=== PATIENT | female | born 1980 ===

== ENCOUNTER → 2021-03-31 11:29 | Outpatient (CLI) | payer OTHER, SELFPAY ==
[2021-03-31 12:00] LABS: COVID19 -Nasal RAPID Negative (Negative)
== END ==
PROVIDERS: Visit Provider Nurse Practitioner
DX: R05 Cough (principal); J02.9 Acute pharyngitis, unspecified; R09.81 Nasal congestion; Z20.822 Contact with and (suspected) exposure to COVID-19
CPT/HCPCS: 87635

== ENCOUNTER 2023-05-04 15:26 | Emergency (ER) | payer OTHER, SELFPAY ==
[2023-05-04] VITALS (12 sets, daily range): BP systolic 101–117; BP diastolic 68–74; PULSE 93–120; RESP 15–25; TEMP 36.6; O2SAT 94–99; BMI 28.0
--- NOTE | 2023-05-04 15:35 | DI.RAD.S_ITS ---
PROCEDURE: XR CHEST 1V INDICATIONS: chest pain TECHNIQUE: One view of the chest was acquired. COMPARISON: None. FINDINGS: Surgical changes and devices: None. Lungs and pleura: Lungs are clear. No pleural effusions or pneumothorax. Mediastinum: Mediastinal contours appear normal. Heart size is normal. Bones and chest wall: No suspicious bony lesions. Overlying soft tissues appear unremarkable. IMPRESSION: Normal for age, source of current chest pain symptoms is not seen. Dictated by: Jc Benz M.D. on 05/04/2023 at 16:18 Approved by: Jc Benz M.D. on 05/04/2023 at 16:18
[2023-05-04 16:33] LABS: COVID19 -Nasal RAPID Negative (Negative)
[2023-05-04 16:33] LABS: Alanine Aminotransferase 26 IU/L (<35); Albumin 4.3 g/dL (3.5-5.0); Albumin Globulin Ratio 1.4 (1.0-2.8); Alkaline Phosphatase 63 U/L (38-126); Aspartate Aminotransferase 29 IU/L (14-36); BUN Creatinine Ratio 14.5 (6-22); Bilirubin Total 0.5 mg/dL (0.2-1.3); Blood Urea Nitrogen 9 mg/dL (7-17); Calcium 9.3 mg/dL (8.4-10.2); Carbon Dioxide 28 mmol/L (22-32); Chloride 104 mmol/L (98-107); Creatine Kinase 105 U/L (30-135); Estimated Glomerular Filt Rate > 60 mL/min (>60); Globulin 3.1 g/dL (1.7-4.1); Glucose 100 mg/dL (70-100); Lipase 119 U/L (23-300); Magnesium 2.2 mg/dL (1.6-2.3); Sodium 138 mmol/L (137-145); Total Protein 7.4 g/dL (6.3-8.2)
[2023-05-04 16:35] LABS: PTT Partial Thromboplastin Tim 19 SECONDS (26-36)
[2023-05-04 16:37] LABS: INR 0.9 (0.9-1.3); Prothrombin Time 10.7 SECONDS (10.1-12.7)
[2023-05-04 16:40] LABS: Add Manual Diff / Slide Review NO; Basophils Percent Auto 0.3 % (0-2); Eosinophils Percent Auto 1.5 % (2-4); HEMOLYSIS 63 (0-50); Hematocrit 42.6 % (36-46); Hemoglobin 14.4 g/dL (12.0-16.0); Lymphocytes Percent Auto 31.6 % (25-40); Mean Corpuscular HGB Conc 33.9 % (30-36); Mean Corpuscular Hemoglobin 30.4 PG (26-34); Mean Corpuscular Volume 89.6 fL (80-100); Monocytes Percent Auto 7.8 % (3-14); Neutrophils Absolute Auto 5100 /uL (1500-7000); Neutrophils Percent Auto 58.8 % (50-75); Red Blood Cell Count 4.76 X10^6/uL (4.0-5.2); Red Cell Distribution Width 13.1 % (11.6-14.8); White Blood Cell Count 8.7 X10^3/uL (4.5-11.0)
[2023-05-04 16:41] LABS: Basophils Absolute Auto 0 /uL (0-100); Eosinophils Absolute Auto 100 /uL (0-450); Lymphocytes Absolute Auto 2700 /uL (1100-4500); Monocytes Absolute Auto 700 /uL (0-900)
[2023-05-04 16:44] LABS: Troponin I < 0.012 ng/mL (0.01-0.034)
[2023-05-04 16:48] LABS: Platelet Count 236 X10^3/uL (150-400)
[2023-05-04 16:49] LABS: D Dimer 376 ng/ml (<500)
[2023-05-04 17:04] LABS: TSH w/ Reflex to FT4 0.73 uIU/mL (0.47-4.68)
[2023-05-04] MEDS: SODIUM CHLORIDE 0.9% 1,000 ML 1000 ML IV (18:06)
--- NOTE | 2023-05-04 18:19 | ED_ITS ---
HPI - Arrhythmia/Palpitations General Chief Complaint: Arrhythmia/Palpitations Stated Complaint: Palpitations Time Seen by Provider: 05/04/23 16:02 Mode of arrival: Family Vehicle History of Present Illness HPI narrative: Patient is a 42-year-old female who presents today with heart palpitations. She is no past medical history. She reports that she was feeling in her normal state of health earlier today. She was driving home when she felt her heart rate going up and having heart palpitations. She thought she might pass out so she pulled off to the side of the road. She felt it subside she never passed out then quickly heart rate spiked back down and spiked again. She never passed out no dizziness or lightheadedness. She is not had any fever or chills. No abdominal pain no vomiting. She reports that she previously had a heart workup she had a monitor and an echo she reports she is a valve problem. She has not had this happen in a long time. She is not currently taking any medications. Related Data Home Medications Medication Instructions Recorded Confirmed No Known Home Medications 03/31/21 03/31/21 Allergies Allergy/AdvReac Type Severity Reaction Status Date / Time No Known Drug Allergies Allergy Unverified 05/04/23 15:34 Review of Systems Review of Systems ROS Unobtainable: All systems reviewed & are unremarkable except as noted in HPI and below Patient History Social History Smoking Status: Never smoker Smoking Status: Never smoker Exam Initial Vital Signs Initial Vital Signs: Vital Signs Temperature 98 F 05/04/23 15:32 Pulse Rate 120 H 05/04/23 15:32 Respiratory Rate 16 05/04/23 15:32 Blood Pressure 117/70 05/04/23 15:32 Pulse Oximetry 99 05/04/23 15:32 Oxygen Delivery Method Room Air 05/04/23 15:32 GENERAL: Alert pleasant well-appearing 42-year-old female and in no acute distress. HEENT: Head atraumatic,EOMI, pupils reactive, face symmetric, moist mucous membranes CARDIOVASCULAR: Regular rate and rhythm without murmurs, rubs or gallops. RESPIRATORY: Breath sounds equal bilaterally, no wheezes rales or rhonchi. ABDOMEN: Soft, nontender. Normoactive bowel sounds all 4 quadrants. No guarding or rebound. EXTREMITIES: Normal range of motion, no clubbing or edema. Neurovascularly intact NEUROLOGICAL: Alert and oriented x4. SKIN: Warm, dry, no laceration, no petechiae, no rashes or lesions. Course Orders Ordered: Discontinued Medications Acetaminophen (Acetaminophen 325 Mg Tablet) 975 mg PO NOW ONE Stop: 05/04/23 18:32 Last Admin: 05/04/23 18:43 Dose: 975 mg Documented By: RENNY Aspirin (Aspirin 81 Mg Chew Tab) 324 mg PO NOW ONE Stop: 05/04/23 15:36 Last Admin: 05/04/23 17:03 Dose: Not Given Documented By: EDDIE Sodium Chloride (Normal Saline 0.9%) 1,000 mls @ 1,000 mls/hr IV BOLUS ONE Stop: 05/04/23 18:52 Last Infusion: 05/04/23 19:40 Dose: Infused Documented By: Admin: 05/04/23 18:06 Dose: 1,000 mls/hr Documented By: RENNY Vital Signs Vital signs: Vital Signs - 8 hr 05/04/23 19:00 05/04/23 19:00 05/04/23 19:30 Pulse Rate 93 H Respiratory Rate 20 Blood Pressure 113/71 109/69 Pulse Oximetry 98 Oxygen Delivery Method Room Air 05/04/23 19:30 Pulse Rate 98 H Respiratory Rate 25 H Blood Pressure Pulse Oximetry 99 Oxygen Delivery Method MDM - Arrhythmia/Palpitations Lab Data 05/04/23 16:00 05/04/23 16:00 Labs: Lab Results 05/04/23 05/04/23 Range/Units 16:00 16:10 WBC 8.7 (4.5-11.0) X10^3/uL RBC 4.76 (4.0-5.2) X10^6/uL Hgb 14.4 (12.0-16.0) g/dL Hct 42.6 (36-46) % MCV 89.6 (80-100) fL MCH 30.4 (26-34) PG MCHC 33.9 (30-36) % RDW 13.1 (11.6-14.8) % Plt Count 236 (150-400) X10^3/uL Neut % (Auto) 58.8 (50-75) % Lymph % (Auto) 31.6 (25-40) % [place] % (Auto) 7.8 (3-14) % Eos % (Auto) 1.5 L (2-4) % Baso % (Auto) 0.3 (0-2) % Neut # (Auto) 5100 (4178-7824) /uL Lymph # (Auto) 2700 (1764-3758) /uL [place] # (Auto) 700 (0-900) /uL Eos # (Auto) 100 (0-450) /uL Baso # (Auto) 0 (0-100) /uL PT 10.7 (10.1-12.7) SECONDS INR 0.9 (0.9-1.3) APTT 19 L (26-36) SECONDS D-Dimer 376 (<500) ng/ml Sodium 138 (137-145) mmol/L Potassium 4.0 (3.4-5.1) mmol/L Chloride 104 (98-107) mmol/L Carbon Dioxide 28 (22-32) mmol/L BUN 9 (7-17) mg/dL Creatinine 0.62 (0.52-1.04) mg/dL Estimated GFR > 60 (>60) mL/min BUN/Creatinine Ratio 14.5 (6-22) Glucose 100 (70-100) mg/dL Calcium 9.3 (8.4-10.2) mg/dL Magnesium 2.2 (1.6-2.3) mg/dL Total Bilirubin 0.5 (0.2-1.3) mg/dL AST 29 (14-36) IU/L ALT 26 (<35) IU/L Alkaline Phosphatase 63 (38-126) U/L Total Creatine Kinase 105 (30-135) U/L Troponin I < 0.012 (0.01-0.034) ng/mL Total Protein 7.4 (6.3-8.2) g/dL Albumin 4.3 (3.5-5.0) g/dL Globulin 3.1 (1.7-4.1) g/dL Albumin/Globulin Ratio 1.4 (1.0-2.8) Lipase 119 (23-300) U/L TSH 0.73 (0.47-4.68) uIU/mL SARS-CoV-2 (PCR) Negative (Negative) Imaging Data Chest x-ray: Radiologist's Impresson: PROCEDURE: XR CHEST 1V INDICATIONS: chest pain TECHNIQUE: One view of the chest was acquired. COMPARISON: None. FINDINGS: Surgical changes and devices: None. Lungs and pleura: Lungs are clear. No pleural effusions or pneumothorax. Mediastinum: Mediastinal contours appear normal. Heart size is normal. Bones and chest wall: No suspicious bony lesions. Overlying soft tissues appear unremarkable. IMPRESSION: Normal for age, source of current chest pain symptoms is not seen. Dictated by: Jc Benz M.D. on 05/04/2023 at 16:18 ECG Data Interpretation: EKG 1. Sinus arrhythmia rate 99 NJ interval 112 QRS [address] changes no AV block no SA block dropped beats right bundle-branch block noted EKG 2. Sinus rhythm rate 90 NJ 124 QRS 90 QTC 430 more regular no AV donna MDM Narrative Medical decision making narrative: Patient healthy 42-year-old female presenting today with heart palpitations and near syncope. It is unclear exactly how high her heart rate went or what rhythm she was in. It does not sound like she has passed out. She is no evidence of AV donna block. She is in the sinus arrhythmia with a right bundle. No prior EKGs. Blood work has been reviewed overall reassuring. D-dimer is negative viral testing also negative. Heart rate has improved. Discussion with her needing Holter monitor and further evaluation and to return to ED. questions have been answered. She is having any chest pain Differential diagnosis includes SVT, V-tach, atrial fibrillation, av donna block, SA donna block Discharge Plan Departure Patient Disposition: Home Clinical Impression: Palpitations Instructions: DI for Palpitations Activity Restrictions/Additional Instructions: *You have been diagnosed with palpitations *What to do: At this time I recommend he follow up with her primary care provider and get a Holter monitor. Please he hydrated monitor heart rate as best as possible at home. If you should have recurrent symptoms or passing out return ED immediately *Continue to take medications as directed *Follow up with your primary care provider in 2-3 days or call [phone] *Return to ER if you should have palpitations dizziness passing out chest pain or any new, worsening or concerning symptoms Prescriptions: No Action No Known Home Medications Referrals: Miscellaneous,[facility] [Primary Care Provider] - Stand Alone Forms: Patient Portal/API
[2023-05-04] MEDS: ACETAMINOPHEN 325 MG TABLET 975 MG PO (18:43)
== END 2023-05-04 19:45 | disposition home or self-care (01) ==
PROVIDERS: Emergency Medicine; Emergency Provider Emergency Medicine
DX: R00.2 Palpitations (principal); R07.9 Chest pain, unspecified; Z20.822 Contact with and (suspected) exposure to COVID-19
CPT/HCPCS: 36415; 71045; 80053; 82550; 83690; 83735; 84443; 84484; 85025; 85379; 85610; 85730; 87635; 93005; 96360; 96361; 99284; C9803